=== PATIENT | female | born 1980 | race Caucasian/White ===

== ENCOUNTER 2017-05-11 09:50 | Emergency (ER) | payer BC ==
--- NOTE | 2017-05-11 11:19 | ER PHYSICIAN DOCUMENTATION ---
Physician Documentation [facility] Name:Ana Ceedño Age:37 yrs Sex:Female :1980 Arrival Date:05/11/2017 Time:09:50 Bed3 Private MD: Shabbir Soriano Disposition: 05/11 10:00 Chart complete. cd Disposition: 05/11/17 11:11 Discharged to Home/Self Care. Impression: Vaginal Bleeding - : Possible Early . - Condition is Good. - Discharge Instructions: Unplanned - , New Dx. - Medical Reconciliation form form. - Follow up: Private Physician; When: 7 - 10 days; Reason: Recheck today's complaints, Continuance of care. - Problem is new. - Symptoms are unchanged. - Notes: Drink plenty of fluids. Rest. Tylenol if needed. Follow up with your OB doctor in one week for recheck. HPI: 10:14 This 37 yrs old Female presents to ER via Private Vehicle with complaints of cd Vaginal Bleeding, + Preg <12wks. 10:14 The patient presents to the emergency department with vaginal bleeding, that is light, cd with no clots. The estimated gestational age is 4 weeks. course: care: none, Ultrasound: the patient has not had an ultrasound, Risk/complications: no obvious risks or complications are appreciated. Previous pregnancies: in previous pregnancies patient has had vaginal delivery, no complications. Associated signs and symptoms: The patient has no apparent associated signs or symptoms. The patient has not experienced similar symptoms in the past. 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 None - PMHx: None; - PSHx: None; - Ebola Screening: : Patient negative for fever greater than or equal to 101.5 degrees Fahrenheit, and additional compatible Ebola Virus Disease symptoms. Patient denies exposure to infectious person. Patient denies travel to an Ebola-affected area in the 21 days before illness onset. No symptoms or risks identified at this time. . - Immunization history: Flu Vaccine < 1 year. - Social history: Smoking status: Patient states was never smoker of tobacco. Patient/guardian denies using alcohol, street drugs, IV drugs, marijuana. ROS: 10:17 Constitutional: Negative for chills, fever. cd 10:17 Abdomen/GI: Negative for abdominal pain, nausea, vomiting, anorexia. 10:17 : Positive for vaginal bleeding, Negative for urinary symptoms, pelvic pain, flank pain, burning with urination, foul smelling urine. 10:17 All other systems are negative. Exam: 10:18 Abdomen/GI: Soft, non-tender, with normal bowel sounds. No distension or tympany. No cd guarding or rebound. No evidence of tenderness throughout. 10:18 Back: No spinal tenderness. No costovertebral tenderness. Full range of motion. cd 10:18 Constitutional: The patient appears alert, awake, non-diaphoretic, non-toxic, well developed, well nourished. 10:18 Back: Exam negative for acute changes. 10:18 : Exam negative for acute changes. Vital Signs: 10:03 BP 134 / 81; Pulse 75; Resp 16; Temp 98.3; Pulse Ox 97% on R/A; sc1 Procedures: 10:18 Ultrasound: Pelvic, obstetrical ultrasound performed. Patient is . Indications cd include: vaginal bleeding, Views obtained: transabdominal uterus sagittal, transabdominal uterus transverse, Findings: Could not visualize a sac. Will obtain a Formal Transvaginal US of the Pelvis. MDM: 09:55 Patient medically screened. cd 10:19 Differential diagnosis: threatened Ab, ectopic . Data reviewed: vital signs, cd nurses notes, old medical records, and as a result, I will continue to observe the patient. Data interpreted: Pulse oximetry: on room air is 97 %. Interpretation: normal. 11:13 Counseling: I had a detailed discussion with the patient and/or guardian regarding: the cd historical points, exam findings, and any diagnostic results supporting the discharge/admit diagnosis, lab results, radiology results, the need for outpatient follow up, for a recheck, for a referral to a specialist, an OB/Gyne specialist. 05/11 11:01 Order name: HCG, QUANTITATIVE; Complete Time: 11:13 EDMS 05/11 12:00 Order name: [place] [id number] EDMS Dispensed Medications: No medications were administered Point of Care Testing: Urine Dip: 10:18 pH: 5.5; ; Specific [place]: 1.010; Ketones: Negative; Glucose: Negative; Protein: sc1 Negative; Leukocytes: Negative; Nitrite: Negative ; Blood: Moderate (++); Bilirubin: Negative ; Urobilinogen: Normal Signatures: Madiha Adams RN RN sc1 Shabbir Cheema MD MD cd
--- NOTE | 2017-05-11 11:19 | ER NURSING DOCUMENTATION ---
Nurse's Notes [facility] Name:Ana Cedeño Age:37 yrs Sex:Female :1980 Arrival Date:05/11/2017 Time:09:50 Bed3 Private MD: Diagnosis:Vaginal Bleeding-: Possible Early Presentation: 05/11 09:54 Presenting complaint: Patient states: Thinks she might be 4 weeks and started sc1 having vaginal bleeding last night. Here from [place]. Transition of care: patient was not received from another setting of care. Notified ED Physician of patient's arrival and CC Dr. Cheema notified. 09:54 Acuity: MAIDA 3 sc1 09:54 Method Of Arrival: Private Vehicle wi1 Triage Assessment: 10:02 General: Appears in no apparent distress, well developed, well nourished, well groomed, sc1 Behavior is cooperative, pleasant. Pain: Denies pain. : Reports vaginal bleeding that is. 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 None - PMHx: None; - PSHx: None; - Ebola Screening: : Patient negative for fever greater than or equal to 101.5 degrees Fahrenheit, and additional compatible Ebola Virus Disease symptoms. Patient denies exposure to infectious person. Patient denies travel to an Ebola-affected area in the 21 days before illness onset. No symptoms or risks identified at this time. . - Immunization history: Flu Vaccine < 1 year. - Social history: Smoking status: Patient states was never smoker of tobacco. Patient/guardian denies using alcohol, street drugs, IV drugs, marijuana. Screenin:04 Infectious Disease Risk None. Abuse screen: Denies threats or abuse. Nutritional sc1 screening: No deficits noted. Vital Signs: 10:03 BP 134 / 81; Pulse 75; Resp 16; Temp 98.3; Pulse Ox 97% on R/A; sc1 ED Course: 09:53 Patient arrived in ED. ama 09:54 Madiha Adams RN is Primary Nurse. sc1 09:55 Shabbir Cheema MD is Attending Physician. cd 10:01 Triage completed. sc1 10:03 Notified ED Physician of patient's arrival and chief complaint. Dr. Cheema notified. Arm wi1 band placed on Bed in low position Call Light in Reach Gowned HOB Elevated. 10:32 Patient moved to [facility]. mk 10:58 Patient moved back from [facility]. Administered Medications: No medications were administered Point of Care Testing: Urine Dip: 10:18 pH: 5.5; ; Specific [place]: 1.010; Ketones: Negative; Glucose: Negative; Protein: sc1 Negative; Leukocytes: Negative; Nitrite: Negative ; Blood: Moderate (++); Bilirubin: Negative ; Urobilinogen: Normal Outcome: 11:11 Discharge ordered by . cd 11:17 Discharged to home ambulatory. wi1 11:17 Condition: stable 11:17 Discharge instructions given to patient, Instructed on discharge instructions, follow up and referral plans. Demonstrated understanding of instructions. 11:18 Patient left the ED. wi1 Signatures: Madiha Adams RN RN [facility] [place] Shabbir Cheema MD MD cd Kimbro, Marcy mk Averdick, Andrew, Reg Reg ama
--- NOTE | 2017-05-11 11:58 | US REPORT ---
History: Vaginal bleeding, early . LMP 04/13/2017. Beta hCG level of 98. Comparison: None. Technique: Endovaginal sonography of the pelvis. Findings: The endometrium measures 9 mm. No intrauterine gestational sac is identified. No uterine mass. There is no suspicious ovarian or adnexal mass. Small cysts in the right and left ovary are compatible with follicles. There is a small amount of nonspecific free fluid in the right adnexa. Impression: 1. Intrauterine gestation not identified. 2. Ectopic not identified but not excluded. Clinical correlation is needed with serial beta hCG and repeat ultrasound as indicated. 3. Small amount of nonspecific free fluid in the right adnexa of uncertain etiology and significance. Final Electronic Signature: This report was electronically signed by Sy Finney MD on 05/11/2017 11:55 AM. [email or web address] /
== END 2017-05-11 11:19 | disposition home or self-care (01) ==
LOC: ER 09:50
DX: O20.9 Hemorrhage in early pregnancy, unspecified (principal)
CPT/HCPCS: 36415; 76817; 84702; 99284